=== PATIENT | female | born 1950 | race Caucasian/White ===

== ENCOUNTER 2018-06-15 18:55 | Emergency (ER) | payer OTHER ==
[~2018-06-15] VITALS: Ht 157.5 cm; Wt 64.9 kg
[2018-06-15] MEDS ORDERED: NEURONTIN600 MG (19:40)
[2018-06-15] MEDS ORDERED: HYZAAR 50-12.51 EACH (19:40)
== END 2018-06-15 21:42 | disposition home or self-care (01) ==
LOC: ER 18:55
DX: M75.101 Unspecified rotator cuff tear or rupture of right shoulder, not specified as traumatic (principal)

== ENCOUNTER → 2020-09-25 09:11 | Outpatient (CLI) | payer OTHER | END | disposition home or self-care (01) | LOC: LAB 09:11 | DX: U07.1 COVID-19 (principal) ==

== ENCOUNTER → 2020-09-25 | Outpatient (CLI) | payer OTHER ==
[~2020-09-25] MED LIST: HYZAAR 50-12.51 EACH; NEURONTIN600 MG
== END | disposition home or self-care (01) ==
LOC: ASH CLINIC
DX: Z23 Encounter for immunization (principal); U07.1 COVID-19